=== PATIENT | male | born 1980 | race Caucasian/White ===

== ENCOUNTER 2021-09-29 20:35 | Emergency (ER) | payer OTHER ==
[~2021-09-29] VITALS: Ht 175.3 cm; Wt 121.7 kg
[~2021-09-29 20:35] MED LIST: ANTACID200 MG PO; AUGMENTIN 875-1 EACH PO; BACTRIM 400-801 EACH PO; CIPROFLOXACIN500 MG PO; IBUPROFEN200 MG PO; KEFLEX500 MG PO; TRAMADOL HCL50 MG PO
== END 2021-09-30 00:43 | disposition home or self-care (01) ==
LOC: ED 20:35
DX: R51.9 Headache, unspecified (principal)
CPT/HCPCS: 70450; 80048; 83735; 85025; 96374; 96375; 99284-25; J0780; J1200; J7121